=== PATIENT | female | born 1955 | race Caucasian/White ===

== ENCOUNTER 2020-01-05 13:02 | Outpatient (CLI) | payer MEDICARE, OTHER, SELFPAY ==
--- NOTE | 2020-01-06 11:24 | ONC FU_ITS ---
Dr. Michele Patient Follow-Up Note Patient: More York Unit #: [id number]: 1955 Dicatated By: Dale Michele M.D.Date of Visit:Jan 05, 2020 Onc Med Follow-up/Prog Note Chief Complaint: Breast cancer. History of Present Illness: This is a 64 year-old woman with grade 2 infiltrating ductal carcinoma of the right breast, stage IIA (T2, N0, M0), ER/WV positive and HER-2/sheryl negative. She had sustained trauma to the right breast as a result of a fall in April of 2014. She had persistent tenderness of the right breast, and mammogram on 09/16/2014 and a followup ultrasound were concerning. Needle biopsy of the solid mass on 10/13/14 was consistent with infiltrating ductal carcinoma, probably grade 2, ER 90%, WV 60%, and HER-2/sheryl by FISH 0.9. On 09/02/2014 she was taken to OR by Dr. Manju Gillespie for a right breast partial mastectomy and sentinel lymph node biopsy. The surgical pathology showed 3 cm infiltrating ductal carcinoma with negative margins, grade 3, positive for angiolymphatic invasion and nuclear grade II ductal carcinoma in situ. Two sentinel lymph nodes and an additional 3 axillary lymph nodes were negative for metastatic disease. She was first seen by Dr. Frausto on 11/15/14. Oncotype DX score returned at 23, intermediate risk, corresponding to 15% risk of distant recurrence with a hormonal treatment alone for the next 10 years. The patient declined adjuvant chemotherapy. She completed radiation to the right breast on 01/26/2015. She began on adjuvant hormonal treatment with letrozole on 12/01/2014. Her other medical illnesses have been limited to type II diabetes, peripheral neuropathy, and peptic ulcer disease. She has been treated for esophageal stricture. She is followed by a mounter automatic for a heart murmur. She is a nonsmoker. INTERIM HISTORY: During followup she was able to tolerate the letrozole with acceptable toxicity. DEXA scan on 05/03/2013 showed osteopenia with a T-score of -1.4. She continued taking letrozole 2.5 mg daily together with calcium/vitamin D supplements. She is seen for a scheduled visit. She had stopped her letrozole in September 2019. She has been feeling good generally. She still complains of fatigue, but she has normal activity. ECOG score is 0. Her appetite is good. She has not had fever or night sweats. She says her hot flashes have gone away. She has no shortness of breath, cough, or chest pain. She has no GI or complaints. She does have some joint pain, mainly in the shoulders and knees. She has no focal neurologic symptoms. Medications: Aleve 1 Tablet (of 220 mg) Oral PRN, Cholecalciferol 1 (1000 Units) Tablet Oral daily, Glimepiride 1 (4 mg) Tablet Oral daily, MetFORMIN HCl 1 (1000 mg) Tablet Oral b.i.d. Allergies: No Known Allergies. Review of Systems: Constitutional - She feels good, but she does get tried easily. She is able to do normal activity. Her appetite is good and weight is stable. No fever, night sweats, or hot flashes. ECOG score is 0, ENMT - No sinus congestion/drainage. No mouth sores. No sore throat or difficulty swallowing, Hematologic/Lymphatic - No abnormal bruising or bleeding, Respiratory - No shortness of breath. No cough. No pleuritic pain or hemoptysis, Cardiovascular - No angina pain. No palpitations, Gastrointestinal - No nausea or vomiting. No heartburn or acid reflux. No diarrhea or constipation. No blood in the stool or black stools, Genitourinary (F) - No dysuria or hematuria. No urinary frequency. No urgency or incontinence, Musculoskeletal - She has joint pain, mainly in her shoulders and knees, Integumentary - No skin complications, Neurologic - No headache or dizziness. No numbness or tingling. No other focal neurologic symptoms, Psychiatric - No anxiety or depression. No insomnia. Vital Signs: Performed on Jan 05, 2020 13:25 Height - 65.00 in Weight - 180.0 lbs (HIGH) BSA - 1.89 sq.m BMI - 29.95 Temperature - 99.1 F (HIGH) Pulse - 86 /min Respiration - 18 /min BP - 154/78 mm(hg) (HIGH) O2 Sat - 97 % Pain - 0 Physical Examination: Constitutional - She looks good generally, Eyes - Sclerae nonicteric. Conjunctivae clear, ENMT - No lesions noted in the oral cavity, Hematologic/Lymphatic - No cervical or clavicular adenopathy, Respiratory - Lungs are clear with good air movement bilaterally, Cardiovascular - Heart rhythm is regular. There is a II/ systolic murmur. There is no gallop or rub noted, Breasts - There is induration in the right breast. There are no breast masses noted. There is no axillary adenopathy, Abdomen - Soft. Liver and spleen are not enlarged. There is no abdominal mass or ascites noted and there is no inguinal adenopathy, Extremities - No edema, Neurologic - No focal neurologic deficits noted. Impression: 1. Patient with grade 2 infiltrating ductal carcinoma of the right breast, stage IIA (T2, N0, M0), ER/WV positive and HER-2/sheryl negative. She underwent right partial mastectomy and sentinel lymph node biopsy on 10/31/2014. Oncotype DX score was intermediate at 23, corresponding to 15% risk of distant recurrence following hormonal therapy. She declined adjuvant chemotherapy. 2. She was given adjuvant radiation to the right breast, completed on 01/26/2015 to a total dose of 6000 cGy. 3. Adjuvant hormonal therapy with letrozole 2.5 mg began 12/01/2014. Her other medical illnesses include: 4. Type II diabetes. 5. Peripheral neuropathy. 6. Peptic ulcer disease. 7. She has a history of esophageal stricture. During follow-up she continued to have some mild joint pain, but overall she tolerated treatment well. She has now completed 5 years of adjuvant hormonal therapy with no evidence of recurrence of the breast cancer. Plan: She will now be followed on observation/expectant management. She is aware that there is still a small risk for recurrence of her breast cancer. She also is aware that she needs to continue her yearly surveillance mammograms. She will continue regular follow-up with Dr. Gonzalez. I will see her again only as needed. Signed By: Dale Michele M.D. <<Signature on File>>
== END 2020-01-05 13:03 | disposition home or self-care (01) ==
LOC: ONCMED 13:08
PROVIDERS: PCP Family Medicine; Visit Provider Internal Medicine Medical Oncology
DX: Z08 Encounter for follow-up examination after completed treatment for malignant neoplasm (principal); Z85.3 Personal history of malignant neoplasm of breast; M25.50 Pain in unspecified joint; E11.42 Type 2 diabetes mellitus with diabetic polyneuropathy; K27.9 Peptic ulcer, site unspecified, unspecified as acute or chronic, without hemorrhage or perforation; Z92.23 Personal history of estrogen therapy; Z92.3 Personal history of irradiation; Z90.11 Acquired absence of right breast and nipple; Z87.19 Personal history of other diseases of the digestive system
CPT/HCPCS: 99214

== ENCOUNTER 2023-05-27 09:32 | Outpatient (RCR) | payer MEDICARE, OTHER, SELFPAY | END 2023-06-12 23:59 | disposition home or self-care (01) | LOC: SPT 09:32 | PROVIDERS: Visit Provider Orthopaedic Surgery | DX: Z47.1 Aftercare following joint replacement surgery (principal); Z96.651 Presence of right artificial knee joint | CPT/HCPCS: 97110; 97161 ==

== ENCOUNTER 2023-06-13 06:00 | Outpatient (RCR) | payer MEDICARE, OTHER, SELFPAY | END 2023-07-13 23:59 | disposition home or self-care (01) | LOC: SPT 06:00 | PROVIDERS: Visit Provider Orthopaedic Surgery | DX: Z47.1 Aftercare following joint replacement surgery (principal); Z96.651 Presence of right artificial knee joint | CPT/HCPCS: 97110; 97140; 97530 ==